=== PATIENT | female | born 1935 | race Hispanic/Latino ===

== ENCOUNTER 2019-03-18 08:24 | Day surgery (SDC) | payer MEDICARE, OTHER ==
[2019-03-18] MEDS ORDERED: WATER FOR IRRIG STERILE ONE (08:43)
[2019-03-18] MEDS ORDERED: WATER FOR IRRIG STERILE IR ONE (08:43)
[2019-03-18] MEDS ORDERED: NACL 0.9% 1000 ML 1,000 ML IV SCH (09:00)
--- NOTE | 2019-03-18 09:36 | Anesthesia Day of Surgery ---
Anesthesia Day of Surgery - Day of Surgery Patient Examined: Yes Patient H&P Reviewed: Yes Patient is NPO: Yes Beta Blockers: Yes
--- NOTE | 2019-03-18 09:36 | Anesthesia Consultation ---
Anesthesia Consult and Med Hx Date of service: 03/18/19 - Airway Anesthetic Teeth Evaluation: Good ROM Head & Neck: Adequate Mental/Hyoid Distance: Adequate Mallampati Class: Class II Intubation Access Assessment: Probably Good - Pre-Operative Health Status ASA Pre-Surgery Classification: ASA3 Proposed Anesthetic Plan: MAC - Pulmonary Hx Sleep Apnea: Yes - Cardiovascular System Hx Hypertension: Yes Hx Peripheral Vascular Disease: Yes - Endocrine Hx Hypothyroidism: Yes - Other Systems Hx Cancer: Yes (right breast CA)
[2019-03-18] MEDS ORDERED: DIPRIVAN 10 MG/ML IV ONE ×2 (09:41→10:04)
[2019-03-18] MEDS ORDERED: XYLOCAINE 2% UROJET ONE (10:04)
--- NOTE | 2019-03-18 10:29 | Procedure Note ---
Date of procedure: 03/18/19 Pre-op diagnosis: Hematochezia Post-op diagnosis: other (Hematochezia secondary to Moderate Internal Hemorrhoids (s/p Banding x 3)/ Moderate, Left colon diverticuli) Procedure: Colonoscopy/ Flex Sigmoidoscopy with banding x 3 Anesthesia: MAC Surgeon: ROCCO PINTO Estimated blood loss: minimal Pathology: none Condition: stable Disposition: same day (Avoid aspiring and NSAID for 5 days. follow up in 1 to 2 weeks ([phone]).)
[2019-03-18 10:37] VITALS: BP 116/68
--- NOTE | 2019-03-18 10:54 | Operative Report ---
PROCEDURE: Colonoscopy. INDICATIONS: This is an 83-year-old white female, who has been having history of chronic constipation, prior history of breast cancer, lately had been having some persistent hematochezia. Colonoscopy was done to make sure there was not any significant lower GI pathology present. DESCRIPTION OF PROCEDURE: Procedure was done after getting informed consent with MAC anesthesia. Initial rectal exam was unremarkable. Instrument was passed through the rectum onto the cecum, which was identified with ileocecal valve and the appendiceal orifice. Visualization was fair. Cecum, ascending colon, transverse colon showed normal mucosa. There were a few moderate diverticula noted in the left colon and the rectum showed some moderate internal hemorrhoid, which was the possible cause of the patient's hematochezia. No biopsies were done. There was no bleeding associated with the colonoscopy. IMPRESSION: Hematochezia secondary to moderate internal hemorrhoids and moderate left colon diverticular disease. No colon polyps noted. No biopsies done. There was no bleeding or complications associated with the colonoscopy. RNSheela was in the room throughout the entirety of the procedure: The patient is to have a flexible sigmoidoscopy with hemorrhoidal banding to help treat the patient's underlying hematochezia. JOB# [id number] FRANCOIS/MIGUELINA
--- NOTE | 2019-03-18 10:56 | Operative Report ---
PROCEDURE: Flexible sigmoidoscopy with hemorrhoidal banding x 3. INDICATIONS: This is an 83-year-old white female, who has a history of chronic constipation, history of breast cancer, who had been having persistence of hematochezia. Colonoscopy showed moderate internal hemorrhoids and some moderate left colon diverticular disease. Flexible sigmoidoscopy with banding was done since it was felt that the hematochezia was secondary to the hemorrhoids. DESCRIPTION OF THE PROCEDURE: The EGD scope with the banding apparatus was introduced and retroflexed. She has the largest hemorrhoids were then suctioned into the suction channel and a band was deployed to each of these hemorrhoids at the end of the procedure. Lidocaine gel was placed through a syringe into the rectal vault, there was minimal to no bleeding associated with the procedure. No complications associated with the procedure. ASSESSMENT: Hematochezia secondary to moderate internal hemorrhoids, status post banding x 3. There was minimal to no bleeding associated with the procedure. No complications associated with the procedure. The patient will be asked to avoid aspirin and aspirin-related products for the next few days and follow up in the office in 1-2 weeks' time and if required, the patient will be given analgesics. RNSheela was in the room throughout the entirety of the procedure. [facility]# [id number] FRANCOIS/MIGUELINA
== END 2019-03-18 10:59 | disposition home or self-care (01) ==
LOC: GIO 08:24
DX: K64.8 Other hemorrhoids (principal); K57.30 Diverticulosis of large intestine without perforation or abscess without bleeding; K59.00 Constipation, unspecified; I10 Essential (primary) hypertension; G47.30 Sleep apnea, unspecified; K21.9 Gastro-esophageal reflux disease without esophagitis; E03.9 Hypothyroidism, unspecified; Z85.3 Personal history of malignant neoplasm of breast; Z88.2 Allergy status to sulfonamides; Z79.899 Other long term (current) drug therapy; Z88.8 Allergy status to other drugs, medicaments and biological substances
CPT/HCPCS: 45378; 46221; J2704; J7030